=== PATIENT | male | born 1965 | race Two or more races ===

== ENCOUNTER 2017-11-22 13:34 | Inpatient (IN) | payer OTHER ==
[2017-11-22 15:53] VITALS: BMI 23.5
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
[2017-11-22] MEDS ORDERED: MAGNESIUM CITRATE 300 ML BOTTLE PO PRN (17:17)
[2017-11-22] MEDS ORDERED: guaiFENesin/D-METHORPHAN HB 10 ML UNIT-DOSE CUPS PO PRN (17:17)
[2017-11-22] MEDS ORDERED: MAGNESIUM HYDROX 2400MG/30ML ORAL SUSPENSION 30 ML CUP PO PRN (17:17)
[2017-11-22] MEDS ORDERED: P-EPHED 60MG/TRIPROLIDI 2.5MG TABLET PO PRN (17:17)
[2017-11-22] MEDS ORDERED: MENTHOL/PHENOL 1 EACH UD MM PRN (17:17)
[2017-11-22] MEDS ORDERED: MAG HYDROX/AL HYDROX/SIMETH 30 ML UNIT-DOSE CUP PO PRN (17:17)
[2017-11-22] MEDS ORDERED: IBUPROFEN 400 MG TABLET (FP) PO PRN (17:17)
[2017-11-22] MEDS ORDERED: ACETAMINOPHEN 325 MG TABLET (FP) PO PRN (17:17)
[2017-11-22] MEDS ORDERED: LOPERAMIDE HCL 2 MG CAPSULE PO PRN (17:17)
[2017-11-22] MEDS ORDERED: NICOTINE POLACRILEX 2 MG GUM BUC PRN (17:21)
[2017-11-22] MEDS ORDERED: NICOTINE 14 MG/24 HOURS TOPICAL PATCH TD SCH (17:30)
[2017-11-22] MEDS: THIAMINE HCL 100 MG TABLET (FP) PO SCH (22:17)
[2017-11-22] MEDS: NICOTINE 14 MG/24 HOURS TOPICAL PATCH TD SCH (22:18)
[2017-11-23 00:33] LABS: URINE APPEARANCE CLEAR; URINE BILIRUBIN NEGATIVE (NEGATIVE); URINE BLOOD NEGATIVE (NEGATIVE); URINE COLOR LTYELLOW; URINE GLUCOSE (UA) NEGATIVE (NEGATIVE); URINE KETONE NEGATIVE (NEGATIVE); URINE LEUK ESTERASE NEGATIVE (NEGATIVE); URINE NITRITE NEGATIVE (NEGATIVE); URINE PROTEIN NEGATIVE (NEGATIVE); URINE UROBILINOGEN NEGATIVE mg/dL (0.2-1.0)
[2017-11-23] MEDS: PRENATAL VITAMINS W/ FOLIC ACID TABLET (FP) PO SCH (09:39)
[2017-11-23] MEDS: NICOTINE 14 MG/24 HOURS TOPICAL PATCH TD SCH (09:40)
[2017-11-23] MEDS: THIAMINE HCL 100 MG TABLET (FP) PO SCH (21:06)
[2017-11-24] MEDS: PRENATAL VITAMINS W/ FOLIC ACID TABLET (FP) PO SCH (09:55)
[2017-11-24] MEDS: NICOTINE 14 MG/24 HOURS TOPICAL PATCH TD SCH (09:56)
[2017-11-24] MEDS: ALBUTEROL SO4 18 GM HFA INHALER IH PRN (09:57)
--- NOTE | 2017-11-24 14:30 | EKG ---
Test Reason : Blood Pressure : / mmHG Vent. Rate : 066 BPM Atrial Rate : 066 BPM P-R Int : 160 ms QRS Dur : 142 ms QT Int : 426 ms P-R-T Axes : 056 -17 035 degrees QTc Int : 446 ms NORMAL SINUS RHYTHM RIGHT BUNDLE BRANCH BLOCK ABNORMAL ECG Confirmed by MD GREGORY, MERCEDES ([id number]) on 11/24/2017 2:30:29 PM Referred By: Michelle HUYNH Confirmed By:MERCEDES JENKINS MD
[2017-11-24] MEDS: THIAMINE HCL 100 MG TABLET (FP) PO SCH (21:04)
[2017-11-25] MEDS: PRENATAL VITAMINS W/ FOLIC ACID TABLET (FP) PO SCH (09:50)
[2017-11-25] MEDS: NICOTINE 14 MG/24 HOURS TOPICAL PATCH TD SCH (09:50)
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
[2017-11-25] MEDS: THIAMINE HCL 100 MG TABLET (FP) PO SCH (21:01)
[2017-11-25] MEDS: ALBUTEROL SO4 18 GM HFA INHALER IH PRN (21:02)
[2017-11-26] MEDS: NICOTINE 14 MG/24 HOURS TOPICAL PATCH TD SCH (09:49)
[2017-11-26] MEDS: PRENATAL VITAMINS W/ FOLIC ACID TABLET (FP) PO SCH (09:49)
[2017-11-26] MEDS: THIAMINE HCL 100 MG TABLET (FP) PO SCH (21:02)
[2017-11-27] MEDS: PRENATAL VITAMINS W/ FOLIC ACID TABLET (FP) PO SCH (09:54)
[2017-11-27] MEDS: NICOTINE 14 MG/24 HOURS TOPICAL PATCH TD SCH (09:54)
[2017-11-27] MEDS: THIAMINE HCL 100 MG TABLET (FP) PO SCH (21:04)
[2017-11-28 06:37] VITALS: BP 93/57; PULSE 78; TEMP 98.3
[2017-11-28] MEDS: NICOTINE 14 MG/24 HOURS TOPICAL PATCH TD SCH (09:55)
[2017-11-28] MEDS: PRENATAL VITAMINS W/ FOLIC ACID TABLET (FP) PO SCH (09:56)
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
== END 2017-11-28 12:45 | disposition left against medical advice (07) | DRG 895 ==
LOC: YASAS 13:34 → Y5N 17:38
PROVIDERS: ADMIT Psychiatry & Neurology Psychiatry; ATTEND Psychiatry & Neurology Psychiatry
PROC: HZ42ZZZ Group Counseling for Substance Abuse Treatment, Cognitive-Behavioral (ICD-10-PCS; principal; 2017-11-22)
DX: F14.20 Cocaine dependence, uncomplicated (principal); F12.20 Cannabis dependence, uncomplicated; F17.210 Nicotine dependence, cigarettes, uncomplicated; F91.8 Other conduct disorders; F31.75 Bipolar disorder, in partial remission, most recent episode depressed; J45.20 Mild intermittent asthma, uncomplicated; Z86.69 Personal history of other diseases of the nervous system and sense organs; Z91.5 Personal history of self-harm
CPT/HCPCS: 36415; 81003; 87389; 93005; 93010